=== PATIENT | female | born 1945 | race Caucasian/White ===

== ENCOUNTER 2017-08-12 09:24 | Emergency (ER) | payer MEDICARE ==
[~2017-08-12] VITALS: Ht 170.1 cm; Wt 72.6 kg
[2017-08-12 09:24] VITALS: BP 122/66
[~2017-08-12 09:24] MED LIST: ACETAMINOPHEN PEG; ALLERGY RELIEF10 M1 PO; AMBIEN10 M1 PO; AMITRIPTYLINE25 MG PEG; AMITRIPTYLINE25 MG PO; AMOXICILLIN500 M1; AMOXICILLIN500 MG PO; ARTIFICIAL SALIVA BC; ATIVAN1 MG PEG; ATIVAN1 MG PO; Anusol Hc,Anuco25 MG PO; BACTRIM DS 8001 TA1 PEG; BALMEX100 GM T; BENZTROPINE MESY1 MG PEG; CEFDINIR250 MG/5 M PO; CIPRO500 MG PEG; CLARITIN10 MG PO; COGENTIN0.5 MG PO; COLACE100 MG PO; DIABETIC S100 MG/5 M PEG; DIABETIC TUSSIN PEG; DOXYCYCLINE100 M3 PEG; DUONEB 3 MG/3 ML3 M1 INH; DUONEB 3 MG/3 ML3 M1 NEB; FLURAZEPAM15 MG; FLURAZEPAM15 MG PO; GENTACIDIN5 ML; HUMALOG100 U/ML SC; HYDR25T PO; K-SOL20 MEQ/15 PO; KLONOPIN0.5 MG PEG; KLORVESS,K40 MEQ/30 PO; LEVAQUIN750 M1 PO; LEVETIRACE500 MG/5 M PEG; LEVETIRACETAM500 MG PO; LEVOFLOXAC500 MG/100 IV; LEVOFLOXACIN500 MG PO; LISINOPRIL/HCTZ1 TA4; LISINOPRIL20 MG PO; LOPRESSOR25 MG PO; MAGOX 400400 MG PEG; MAGOX 400400 MG PO; METOPROLOL50 MG PO; MILK OF MA400 MG/5 M PEG; MOM30 M1 PO; NITROSTAT0.4 MG SL; NUTREN 2.0250 ML PEG; OXYBUTYNIN5 MG PO; PANTOPRAZOLE SO40 MG PEG; PHENYTOIN SODI100 M3 PEG; PHENYTOIN100 MG/41 PEG; PHENYTOIN100 MG/41 PO; POTASSIUM CHLO480 ML PEG; POTASSIUM20 MEQ/12 PO; PREDNISONE10 MG PEG; PRILOSEC10 MG/Pack PEG; PRILOSEC20 M1 PEG; PRINIVIL10 MG PEG; PRINIVIL5 M1 PEG; REGLAN10 MG/10 M PEG; REGLAN5 MG PEG; REMERON15 M2 PEG; REQUIP0.5 MG PEG; RISPERDAL1 M1 PEG; RISPERDAL1 MG PO; ROBITUSSIN5 ML PO; TESSALON PERLE200 MG; TYLENOL500 MG PO; VANCOMYCIN1 GM/200 M IV; VITAMIN D PEG; VITAMIN D1000 IU PEG; VITAMIN D1000 IU PO; VITAMIN D2400 IU; VITAMIN D3400 UNIT/5 PEG; ZANTAC SYR150 MG/10 PEG; ZANTAC SYR150 MG/10 PO; ZANTAC25 MG/1 ML PEG; ZESTRIL,PRINIVI20 MG PO; ZOFRAN4 MG PEG; ZOFRAN4 MG/5 ML PEG; ZYVOX; ZYVOX IV; [UNRECOGNIZED DRUG - OTHER] IV; [UNRECOGNIZED DRUG - OTHER] PEG
== END 2017-08-12 10:54 | disposition other institution (70) ==
LOC: ED 09:24
DX: K94.23 Gastrostomy malfunction (principal); F31.9 Bipolar disorder, unspecified; J44.1 Chronic obstructive pulmonary disease with (acute) exacerbation; E11.65 Type 2 diabetes mellitus with hyperglycemia; G40.909 Epilepsy, unspecified, not intractable, without status epilepticus; Z98.51 Tubal ligation status

== ENCOUNTER 2019-01-07 11:39 | Emergency (ER) | payer MEDICARE, MEDICAID ==
[~2019-01-07] VITALS: Wt 65.8 kg
--- NOTE | ~2019-01-07 | EKG ---
[place], [place] ELECTROCARDIOGRAM REPORT NAME: JAQUELIN CORDERO UNIT #: [id number] ROOM: DOCTOR: EPIPHANY DRAFT REPORT BIRTHDATE: [birth year] [facility] Test Date: 2019-01-07 Test Time: 12:01:40 Pat Name: JAQUELIN CORDERO Department: Room: Gender: F Molecular Biology Director: : 1945 Requested By: DEVYN WANG Order Number: [id number] Reading MD: Js Finney MD Measurements Intervals [place] Rate: 95 P: 69 HI: 124 QRS: 55 QRSD: 81 T: 62 QT: 383 QTc: 482 Interpretive Statements Sinus rhythm Biatrial enlargement Anteroseptal infarct, age indeterminate ST depression consider inferior ischemia Motion artifact Electronically Signed On 01-07-2019 12:13:04 PDT by Js Finney MD CM:EKGRPT:ELECTROCARDIOGRAM REPORT 1201 1213 DEVYN PARK DRAFT REPORT DEVYN WANG DO
[2019-01-07 12:26] LABS: BASO # 0.1 10*3/uL (0.0-0.1); BASO % 0.9 % (0.0-1.0); EOS # 0.1 10*3/uL (0.0-0.4); EOS % 0.8 % (1.0-4.0); HEMATOCRIT 47.5 % (37.0-47.0); HEMOGLOBIN 15.7 g/dl (12.0-16.0); LYMPH # 1.2 10*3/uL (1.3-4.4); LYMPH % 13.3 % (27.0-41.0); MEAN CELL VOLUME 96.2 fl (81.0-99.0); MEAN CORPUSCULAR HGB 31.8 pg (27.0-31.0); MEAN CORPUSCULAR HGB CONC 33.1 g/dl (33.0-37.0); MEAN PLATELET VOLUME 12.5 fl (9.6-12.3); MONO # 0.9 10*3/uL (0.1-1.0); NEUT # 6.8 10*3/uL (2.3-7.9); NEUT % 74.6 % (47.0-73.0); PLATELET COUNT AUTOMATED 236 10*3/uL (130-400); RED BLOOD COUNT 4.94 10*6/uL (4.10-5.10); RED CELL DISTRI WIDTH 12.4 % (0-14.5); WHITE BLOOD COUNT 9.1 10*3/uL (4.8-10.8)
[2019-01-07 12:42] LABS: ACT PARTIAL THROMBO TIME 25.1 SECONDS (20.0-32.1); ALKALINE PHOSPHATASE 126 U/L (45-117); BUN 16 mg/dl (7-24); CHLORIDE 107 mmol/L (98-107); CREATININE 0.68 mg/dL (0.55-1.02); POTASSIUM 4.1 mmol/L (3.5-5.1); SGOT/AST 16 IU/L (3-35); SGPT/ALT 23 U/L (12-78); SODIUM 141 mmol/L (136-145); TOTAL PROTEIN 7.8 gm/dL (6.4-8.2)
[2019-01-07 12:43] LABS: TROPONIN I < 0.015 ng/ml (<0.045)
[2019-01-07 12:53] LABS: PHENYTOIN (DILANTIN) 17.5 ug/ml (10-20)
[2019-01-07] MEDS ORDERED: AUGMENTIN 875-875 MG PO (14:20)
[2019-01-07 14:44] VITALS: BP 146/55
== END 2019-01-07 14:22 | disposition home or self-care (01) ==
LOC: ED 11:39
PROVIDERS: Family Medicine
DX: J32.9 Chronic sinusitis, unspecified (principal); J44.9 Chronic obstructive pulmonary disease, unspecified; E11.65 Type 2 diabetes mellitus with hyperglycemia; G40.909 Epilepsy, unspecified, not intractable, without status epilepticus; Z98.51 Tubal ligation status; Z79.4 Long term (current) use of insulin; Z79.899 Other long term (current) drug therapy; Z88.8 Allergy status to other drugs, medicaments and biological substances

== ENCOUNTER 2020-11-02 20:28 | Inpatient (IN) | payer OTHER, MEDICARE, MEDICAID ==
[~2020-11-02] VITALS: Ht 154.9 cm; Wt 65.8 kg
[~2020-11-02 20:28] MED LIST changes: +AUGMENTIN 875-875 MG PO; +DILANTIN50 MG PO; +KEPPRA500 MG/5 M IV; +NORVASC5 MG PO
[2020-11-02 20:35] VITALS: BP 121/57
[2020-11-03] VITALS: BP 128/75
[2020-11-03 08:00] VITALS: BP 87/60
[2020-11-03 12:00] VITALS: BP 124/53
[2020-11-03 16:00] VITALS: BP 127/53
[2020-11-03 20:00] VITALS: BP 121/53
[2020-11-04] VITALS: BP 149/64
[2020-11-04 08:00] VITALS: BP 130/53
[2020-11-04 12:00] VITALS: BP 139/55
[2020-11-04 16:00] VITALS: BP 149/59
[2020-11-06] MEDS ORDERED: [UNRECOGNIZED DRUG - OTHER] IV (10:55)
[2020-11-06] MEDS ORDERED: SODIUM CHLORIDE 0.9% IV (10:55)
== END 2020-11-04 20:28 | DRG 871 ==
LOC: 4E 20:28
PROVIDERS: ADMIT Internal Medicine; ATTEND Internal Medicine
DX: A41.9 Sepsis, unspecified organism (principal); K85.90 Acute pancreatitis without necrosis or infection, unspecified; R65.21 Severe sepsis with septic shock; K55.9 Vascular disorder of intestine, unspecified; Z51.5 Encounter for palliative care; G40.909 Epilepsy, unspecified, not intractable, without status epilepticus; J44.9 Chronic obstructive pulmonary disease, unspecified; E11.65 Type 2 diabetes mellitus with hyperglycemia; Z66 Do not resuscitate; F31.9 Bipolar disorder, unspecified; F44.9 Dissociative and conversion disorder, unspecified; Z86.74 Personal history of sudden cardiac arrest; Z87.01 Personal history of pneumonia (recurrent); Z98.51 Tubal ligation status; Z84.1 Family history of disorders of kidney and ureter; Z88.8 Allergy status to other drugs, medicaments and biological substances; Z79.899 Other long term (current) drug therapy